=== PATIENT | male | born 1975 ===

== ENCOUNTER → 2017-08-01 | Emergency (ER) | payer OTHER ==
[~2017-08-01] VITALS: Ht 170.2 cm; Wt 145.1 kg
[~2017-08-01] MED LIST: AMOX1TAB5; GILTUSS TR TAB1 EACH PO
== END | disposition home or self-care (01) ==
LOC: ER 08:34
DX: B34.9 Viral infection, unspecified (principal)

== ENCOUNTER → 2017-10-01 | Emergency (ER) | payer OTHER ==
[~2017-10-01] VITALS: Ht 170.2 cm; Wt 147.4 kg
[~2017-10-01] MED LIST changes: +FLONASE ALLERG9.9 ML NASAL; +ZITHROMAX500 MG PO
== END | disposition home or self-care (01) ==
LOC: ER 10:33
DX: R53.1 Weakness (principal); J32.8 Other chronic sinusitis

== ENCOUNTER 2018-05-30 19:32 | Emergency (ER) | payer OTHER ==
[~2018-05-30] VITALS: Ht 170.2 cm; Wt 149.7 kg
[2018-05-31] MEDS ORDERED: ZITHROMAX TRI-500 MG PO (03:40)
[2018-05-31] MEDS ORDERED: FLONASE ALLERG9.9 ML NASAL (03:40)
== END 2018-05-31 04:06 | disposition home or self-care (01) ==
LOC: ER 19:32
DX: R42 Dizziness and giddiness (principal); J01.00 Acute maxillary sinusitis, unspecified

== ENCOUNTER 2022-05-01 17:46 | Emergency (ER) | payer OTHER ==
[~2022-05-01] VITALS: Ht 170.2 cm; Wt 133.8 kg
[~2022-05-01 17:46] MED LIST changes: +ZITHROMAX TRI-500 MG PO
[2022-05-01] MEDS ORDERED: HYZAAR 50-12.51 EACH (17:59)
== END 2022-05-01 22:07 | disposition home or self-care (01) ==
LOC: ER 17:46
DX: R07.89 Other chest pain (principal)